=== PATIENT | female | born 2005 | race Caucasian/White ===

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

== ENCOUNTER 2024-01-04 13:14 | Outpatient (AMB) | payer OTHER, SELFPAY ==
--- NOTE | 2024-01-04 13:22 | A.OFFVIS_ITS ---
Vital Signs 01/04/24 13:23 Height 5 ft 2 in Weight 106 lb 4.205 oz BMI 19.4 BP 101/57 L Blood Pressure Location Lt brachial Position Sitting Pulse 84 Pulse Source Pulse Oximeter Pulse Oximetry (%) 99 Oxygen Delivery Method Room Air Intake Visit Reasons: follow up EGD Intake Note: Pt presents to the office today for a follow up EGD. Pt states she is still having stomach pain everyday especially before and after eating. 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 Reports longstanding left sided abd pain which is intermittent - not entirely related to food intake or bowel movement. Gets a bit better when bent and worse when stretching. No nausea, vomiting, change in appetite. Had a CT in Mar 2023 which was normal. Smokes marijuana 2-3 times a week. No tobacco. No alcohol. Takes ibuprofen once a month may be. 10/30/23 * Normal esophagus (biopsy) * Normal stomach (biopsy) * Normal duodenum (biopsy)?? Path A. Duodenum, biopsy: Duodenal mucosa within normal limits. B. Stomach, random, biopsy: Oxyntic mucosa with mild chronic inactive inflammation; no Helicobacter organisms seen. C. Esophagus, lower, biopsy: Squamous epithelium within normal limits; no inflammation seen; negative for eosinophilic esophagitis. D. Esophagus, middle, biopsy: Squamous epithelium within normal limits; no inflammation seen; negative for eosinophilic esophagitis 01/04/24: Here for post EGD follow up. Reviewed nromal EGD findings and biopsies. Labs normal as well. Pt reports no improvement with cutting down marijuana. Main issue remains nonspecific abd pain without any food or BM triggers. [facility] Medical History Anemia IBS (irritable bowel syndrome) Hx of cyst of breast Surgical History History of breast lump/mass excision Family History Maternal Grandmother Cervical cancer Social History Household Members: Family Household Members Other:: grandparents Alcohol intake: current Alcohol intake frequency: does not drink Patient Tobacco Use Status: Never used Tobacco Advance Directives: No Advance Directives Information Provided: No Current occupation: Student Review of Systems Const All systems reviewed & are unremarkable except as noted in HPI and below Physical Exam Vital Signs: Last Vital Signs Pulse 84 01/04/24 13:23 BP 101/57 L 01/04/24 13:23 Pulse Ox 99 01/04/24 13:23 Oxygen Delivery Method Room Air 01/04/24 13:23 BMI result Body Mass Index 19.4 No apparent distress Nonicteric Abdomen soft, nondistended Alert and oriented x3, normal gait Assessment & Plan Assessment & Plan (1) Chronic abdominal pain: Code(s): R10.9 - Unspecified abdominal pain; G89.29 - Other chronic pain Category: Medical Plan Reviewed with thept in detail that presentation suspicious for CAPS - chronic abd pain syndrome - clementine given age, sex and absence of other path identified so far inclduing screening for MCAS and angioedema. Low suspicion for porphyria given timing and character of pain. Recommend trial of nortriptyline 10 to be increased to 20 in 4 weeks Improvemeent to be expected in 4-6 weeks after reaching goal dose Follow up 3 minths to review Medications: New nortriptyline one capsule at night x 4 weeks then increase to 2 caps 10 mg PO BEDTIME 90 caps 1RF Coding Level of Care Code Est Pt Level 3 (22553) Diagnoses Chronic abdominal pain R10.9; G89.29
[2024-01-04 13:23] VITALS: BP 101/57; PULSE 84; O2SAT 99; BMI 19.4
== END 2024-01-04 14:02 | disposition home or self-care (01) ==
PROVIDERS: PCP Pediatrics; Visit Provider Internal Medicine
DX: R10.9 Unspecified abdominal pain (principal); G89.29 Other chronic pain
CPT/HCPCS: 99213

== ENCOUNTER → 2024-01-04 13:14 | Outpatient (BNVA) | payer OTHER, SELFPAY | PROVIDERS: PCP Pediatrics; Visit Provider Internal Medicine | DX: R10.9 Unspecified abdominal pain (principal); G89.29 Other chronic pain | CPT/HCPCS: 99212 ==

== ENCOUNTER 2024-03-10 18:02 | Emergency (ER) | payer OTHER, SELFPAY ==
[2024-03-10 18:16] VITALS: BP 120/73; PULSE 90; RESP 18; TEMP 37.2; O2SAT 100; BMI 19.4
--- NOTE | 2024-03-10 18:19 | ED_ITS ---
HPI - General Adult General Chief complaint: Wound/Laceration Stated complaint: right pinky nail inj Time Seen by Provider: 03/11/24 03:35 Source: patient Mode of arrival: ambulatory Limitations: no limitations History of Present Illness ED Provider: thaddeus VAUGHN narrative: Patient with artificial long nails apparently was playing basketball right 5th digit nail ripped back attached at the base only patient's put it back Related Data Home Medications ?Medication ?Instructions ?Recorded ?Confirmed amoxicillin 500 mg capsule 500 mg PO BID 01/04/24 Previous Rx's ?Medication ?Instructions ?Recorded nortriptyline 10 mg capsule 10 mg PO BEDTIME #90 caps 01/04/24 Allergies Allergy/AdvReac Type Severity Reaction Status Date / Time seafood Allergy Severe Anaphylaxis Verified 03/10/24 18:18 kiwi Allergy Intermediate Vomiting Verified 03/10/24 18:18 Review of Systems 2 Review of Systems: Yes all other systems are reviewed and are negative PMFSH Past Medical History Medical History Anemia IBS (irritable bowel syndrome) Hx of cyst of breast Surgical History History of breast lump/mass excision Family History Family History Maternal Grandmother Cervical cancer Social History Social History Household Members: Family Household Members Other:: grandparents Alcohol intake: current Alcohol intake frequency: does not drink Patient Tobacco Use Status: Never used Tobacco Advance Directives: No Advance Directives Information Provided: No Current occupation: Student Physical Exam ED Vital Signs: BMI result Body Mass Index 19.4 Extrem Hand/finger images: 2 1. A currently taking nail attached to the nail bed no subungual hematoma no active bleeding Course Course Course Narrative: RME performed by Ami Higgins PA-C. Patient is a 18 year old assigned female at presenting to the emergency department with a right 5th finger injury. Patient states that she bent back her left 5th nail playing basketball with kids and is having significant pain. Detailed physical exam and review of systems are deferred to the ship pilot dispatcher. Patient placed back in the waiting room pending room availability. Medical Decision Making Medical Decision Making [facility] Narrative: Patient with left 5th digit nail injury at this time nail is attached to the nail bed skin adhesive was applied to keep the nail in place splint was also applied patient advised to keep an eye on the nail if it gets worse or increased pain we may have to remove the nail patient has agreed to conservative treatment for now Discharge Plan Discharge Clinical Impression: Injury of nail bed of finger of right hand Patient Disposition: Home, Self-Care Instructions: Nail Avulsion (ED) Additional Instructions: Local care as advised Report to ER if noticed any discoloration of the nail or increased pain or swelling Prescriptions: No Action amoxicillin 500 mg capsule 500 mg PO BID nortriptyline 10 mg capsule 10 mg PO BEDTIME Qty: 90 1RF Rx Instructions: one capsule at night x 4 weeks then increase to 2 caps Stand Alone Forms: Work/School Release Interventions: ED Discharge Assessment Last Done: 03/11/24 04:35 Discharge Date/Time: 03/11/24 04:40 Print Language: Malay
[2024-03-11 01:53] VITALS: BP 109/63; PULSE 86; RESP 18; TEMP 37.1; O2SAT 100
[2024-03-11 04:35] VITALS: BP 109/63; PULSE 86; RESP 18; TEMP 37.1; O2SAT 100
== END 2024-03-11 04:40 | disposition home or self-care (01) ==
PROVIDERS: Emergency Provider Internal Medicine; PCP Pediatrics
DX: S60.946A Unspecified superficial injury of right little finger, initial encounter (principal); S69.81XA Other specified injuries of right wrist, hand and finger(s), initial encounter; Y93.67 Activity, basketball; Y92.310 Basketball court as the place of occurrence of the external cause; Y99.8 Other external cause status
CPT/HCPCS: 99283